=== PATIENT | female | born 1980 | race Caucasian/White ===

== ENCOUNTER 2022-05-18 15:45 | Emergency (ER) | payer BC, SELFPAY ==
[2022-05-18 15:58] VITALS: BP 141/94; PULSE 91; RESP 16; TEMP 36.4; O2SAT 99
--- NOTE | 2022-05-18 16:01 | ECG_ITS ---
Measurements Intervals [place] Rate: 83 P: 57 [place]: 170 QRS: 33 QRSD: 82 T: 22 QT: 369 QTc: 434 Interpretive Statements SINUS RHYTHM POSSIBLE LEFT ATRIAL ENLARGEMENT [-0.1mV P WAVE IN V1/V2] NO PREVIOUS ECG AVAILABLE FOR COMPARISON Electronically Signed On 05-19-2022 13:32:45 CDT by Coleen Gallego M.D.
[2022-05-18 16:06] VITALS: BP 141/94; PULSE 91; RESP 16; TEMP 36.4; O2SAT 99
[2022-05-18 16:10] VITALS: BP 134/88; PULSE 85
--- NOTE | 2022-05-18 16:14 | ED.DIZZY ---
HPI - Dizziness General Chief Complaint: Dizziness Stated Complaint: Dizziness, abnormal feeling in left arm Time Seen by Provider: 05/18/22 16:10 Source: patient, RN notes reviewed and old records reviewed Mode of arrival: ambulatory Limitations: no limitations History of Present Illness HPI Narrative: 41-year-old female who presents to [facility] care with complaints of dizziness for the past 2 days with bending over especially and has noted when she rolled over in bed stated she could not focus and felt dizziness also. Patient reports that her left arm feels tight. 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 Patient denies any shortness of breath, no chest pain or any diaphoresis or any nausea. patient denies any history of heart disease, no history of clotting abnormalities, no diabetes. Patient does state history of chronic back pain and also history of cigarette use of 1 ppd for 20 years and then has been vaping for the past 1.5 years which does contain nicotine. MD elicited complaint: dizziness, disequilibrium and other (left arm feels tight) Onset (ago): day(s) (2) Timing: intermittent History of similar symptoms: No Exacerbating factors: change in body position and other (bending over) Related Data Home Medications Medication Instructions Recorded Confirmed fluticasone propionate 50 2 spray intranasal DAILY 05/18/22 05/18/22 mcg/actuation nasal spray,suspension levothyroxine 50 mcg tablet 50 mcg PO DAILY 05/18/22 05/18/22 loratadine 10 mg tablet (Claritin) 10 mg PO DAILY 05/18/22 05/18/22 naproxen sodium 220 mg tablet 220 mg PO BID PRN Back Pain 05/18/22 05/18/22 (Aleve) Allergies Allergy/AdvReac Type Severity Reaction Status Date / Time No Known Allergies Allergy Verified 05/18/22 16:03 Review of Systems Review of Systems: CONSTITUTIONAL: Denies fever, chills, or sweats. EYES: Denies visual changes, redness, or discharge. ENT: Denies rhinorrhea, congestion, sore throat, or otalgia. CARDIOVASCULAR: Denies chest pain, palpitations, or edema,positive for left upper arm tightness RESPIRATORY: Denies cough or dyspnea. GASTROINTESTINAL: Denies abdominal pain, nausea, vomiting, or diarrhea. GENITOURINARY: Denies dysuria or hematuria. SKIN: Denies rash or itching. MUSCULOSKELETAL: positive for chronic back pain, joint pain, or myalgia. NEUROLOGIC: Denies headache, numbness, or weakness.positive for dizziness with position changes and bending over PSYCHIATRIC: Denies anxiety or depression. All systems reviewed & are unremarkable except as noted in HPI and below PMFSH Past Medical History Medical History (Updated 05/21/22 @ 00:06 by Rosa Yusuf NP) Chronic back pain Cyst near tailbone removed Environmental allergies Hypothyroid Family History Family History (Updated 05/21/22 @ 00:07 by Rosa Yusuf NP) Father Heart disease Hypertension Other Diabetes mellitus Social History Social History (Updated 05/18/22 @ 16:30 by Rosa Yusuf NP) Smoking status: Current every day smoker Tobacco type: e-cigarettes/vaping Living arrangements: with family Gender identity (if verbalized by the patient): Female Comments At time of signature, agree with nursing past medical, surgical, social and family history. There is no relevant family history pertinent to the presenting complaint Exam Narrative: GENERAL: Well-appearing, well-nourished, and in no acute distress. HEAD: Normocephalic, atraumatic. EYES: PERRLA and EOMI.no nystagmus. ENT: Nares clear, no rhinorrhea or epistaxis. Mucous membranes moist. TM's normal, throat pink with no lesions or exudates or tonsil swelling NECK: Supple.no lymphadenopathy CHEST: Clear to auscultation. No respiratory distress.SAO2 99% on room air no tachypnea HEART: Regular rate and rhythm. No murmur heard. Normal peripheral pulses, no chest pain or p
[2022-05-18 16:15] VITALS: BP 133/91; PULSE 87
[2022-05-18 16:20] VITALS: BP 136/95; PULSE 100
[2022-05-18 16:42] LABS: Glucose Point of Care 148 mg/dl (65-105)
== END 2022-05-18 17:11 | disposition home or self-care (01) ==
PROVIDERS: Emergency Provider Registered Nurse; PCP Internal Medicine
DX: H81.10 Benign paroxysmal vertigo, unspecified ear (principal); E03.9 Hypothyroidism, unspecified; F17.290 Nicotine dependence, other tobacco product, uncomplicated
CPT/HCPCS: 82948; 93005; 99213; G0463

== ENCOUNTER 2022-05-30 08:37 | Emergency (ER) | payer BC, SELFPAY ==
[2022-05-30 08:42] VITALS: BP 124/78; PULSE 71; RESP 16; TEMP 36; O2SAT 99
--- NOTE | 2022-05-30 08:57 | ED.EAR ---
HPI - Ear Problem General Chief complaint: Ear Stated complaint: ear pain Time Seen by Provider: 05/30/22 08:57 Source: patient Mode of arrival: ambulatory Limitations: no limitations History of Present Illness HPI Narrative: 41 y/o female presented for c/o left ear pain for 2 days. Endorses pain radiates to left side of throat and eye. Denies tinnitus or dizziness, fever, sinus pressure, cough, or sob. Endorses she was treated 2 weeks ago for vertigo which has resolved. Using heating pad for symptoms. MD Complaint: ear pain Related Data Home Medications Medication Instructions Recorded Confirmed fluticasone propionate 50 2 spray intranasal DAILY 05/18/22 05/30/22 mcg/actuation nasal spray,suspension levothyroxine 50 mcg tablet 50 mcg PO DAILY 05/18/22 05/30/22 loratadine 10 mg tablet (Claritin) 10 mg PO DAILY 05/18/22 05/30/22 naproxen sodium 220 mg tablet 220 mg PO BID PRN Back Pain 05/18/22 05/30/22 (Aleve) Allergies Allergy/AdvReac Type Severity Reaction Status Date / Time No Known Allergies Allergy Verified 05/30/22 08:51 Review of Systems Review of Systems: CONSTITUTIONAL: Denies malaise, chills, or fever. EYES: Denies visual changes, redness, or discharge. ENT: Denies rhinorrhea, congestion, sinus pain, Reports ear pain CARDIOVASCULAR: Denies chest pain, palpitations, or edema. RESPIRATORY: Denies cough or dyspnea. GASTROINTESTINAL: Denies abdominal pain, nausea, vomiting, diarrhea SKIN: Denies rash or itching. All systems reviewed & are unremarkable except as noted in HPI and below PMFSH Past Medical History Medical History Chronic back pain Cyst near tailbone removed Environmental allergies Hypothyroid Family History Family History Father Heart disease Hypertension Other Diabetes mellitus Social History Social History Smoking status: Current every day smoker Tobacco type: e-cigarettes/vaping Gender identity (if verbalized by the patient): Female Comments At time of signature, agree with nursing past medical, surgical, social and family history. There is no relevant family history pertinent to the presenting complaint Exam Narrative: GENERAL: Well-appearing EYES: conjunctivae clear ENT: Nares clear. Mucous membranes moist. Right TM pearly koenig with dull light reflex; Left TM erythematous and bulging with dull reflex; no tragal tenderness. Oropharynx not erythematous without lesions. Tonsils not enlarged and without exudate, no drooling, no hoarseness, no trismus, uvula midline. NECK: Supple. No lymphadenopathy CHEST: Clear to auscultation, breath sounds equal. HEART: Regular rate and rhythm. SKIN: Warm, dry, no rash. NEURO: Alert and oriented x3. Course Course Emergency Course: Patient is aware of diagnosis, understands and agrees to treatment plan. Anticipatory guidance given. Patient agrees to follow-up as directed and is aware of reasons to seek care at the emergency department. Portions of this record may have been created with voice recognition software Level of Care: Express Care Visit Vital Signs Vital signs: Vital Signs Temperature 96.8 F L 05/30/22 08:42 Pulse Rate 71 05/30/22 08:42 Respiratory Rate 16 05/30/22 08:42 Blood Pressure 124/78 05/30/22 08:42 Pulse Oximetry 99 05/30/22 08:42 Oxygen Delivery Room Air 05/30/22 08:42 Temperature 96.8 F L 05/30/22 08:42 Pulse Rate 71 05/30/22 08:42 Respiratory Rate 16 05/30/22 08:42 Blood Pressure 124/78 05/30/22 08:42 Pulse Oximetry 99 05/30/22 08:42 Oxygen Delivery Room Air 05/30/22 08:42 Reviewed Medical Decision Making [facility] Narrative Medical decision making narrative: patient is non-toxic appearing and is in no distress. Advised supportive measures and signs/symptoms to go to the E
== END 2022-05-30 09:10 | disposition home or self-care (01) ==
PROVIDERS: Emergency Provider Nurse Practitioner Family; PCP Internal Medicine
DX: H66.002 Acute suppurative otitis media without spontaneous rupture of ear drum, left ear (principal); F17.290 Nicotine dependence, other tobacco product, uncomplicated; E03.9 Hypothyroidism, unspecified
CPT/HCPCS: 99213; G0463